=== PATIENT | male | born 1985 | race Caucasian/White ===

== ENCOUNTER 2017-01-01 16:40 | Emergency (ER) | payer SELFPAY ==
[2017-01-01 16:43] VITALS: BMI 32.5
[2017-01-01 16:47] VITALS: RESP 16; TEMP 98.5
[2017-01-01 18:42] VITALS: BP 124/68; PULSE 77; O2SAT 95
--- NOTE | 2017-01-01 18:43 | ED PDOC ---
Arrival/HPI - General Chief Complaint: Finger,Hand,&Wrist Time Seen by Provider: 01/01/17 17:03 Historian: Patient - History of Present Illness Narrative History of Present Illness (Text): 01/01/17 19:28 Patient sts he injured his right hand on the garage door. Patient sts he put ruchi wrap, but pain persists. Time/Duration: Other (2 days) Symptom Onset: Sudden Symptom Course: Unchanged Quality: Aching Past Medical History - Provider Review Nursing Documentation Reviewed: Yes - Travel History Have you recently traveled outside [place] w/in the past 3 mons?: No - Past History Past History: No Previous - Infectious Disease Hx of Infectious Diseases: None - Tetanus Immunization Tetanus Immunization: Unknown - Cardiac Hx Cardiac Disorders: Yes - Pulmonary Hx Respiratory Disorders: No - Neurological Hx Neurological Disorder: No - HEENT Hx HEENT Disorder: No - Renal Hx Renal Disorder: No - Endocrine/Metabolic Hx Endocrine Disorders: No - Hematological/Oncological Hx Blood Disorders: No - Integumentary Hx Dermatological Disorder: No - Musculoskeletal/Rheumatological Hx Musculoskeletal Disorders: No - Gastrointestinal Hx Gastrointestinal Disorders: No - Genitourinary/Gynecological Hx Genitourinary Disorders: No - Psychiatric Hx Psychophysiologic Disorder: No Hx Substance Use: No Family/Social History Family/Social History: Unknown Family HX Smoking Status: Light Smoker < 10 Cigarettes Daily Hx Alcohol Use: No Hx Substance Use: No Allergies/Home Meds Allergies/Adverse Reactions: Allergies No Known Allergies Allergy (Verified 08/17/16 16:56) Review of Systems - Physician Review All systems were reviewed & negative as marked: Yes - Review of Systems Musculoskeletal: Other (right hand pain/swelling) Physical Exam Vital Signs Reviewed: Yes Vital Signs Temp Pulse Resp BP Pulse Ox 01/01/17 18:41 77 16 124/68 95 01/01/17 16:40 98.5 F 94 H 16 111/74 97 Temperature: Afebrile Blood Pressure: Normal Pulse: Regular Respiratory Rate: Normal Appearance: Positive for: Well-Appearing, Non-Toxic, Comfortable Pain Distress: None Mental Status: Positive for: Alert and Oriented X 3 - Systems Exam Head: Present: Atraumatic, Normocephalic Upper Extremity: Present: Tenderness (right hand over 4/5th metacarpal bones), Swelling (right hand over 4/5th metacarpal bones), Capillary Refill < 2s Neurological: Present: GCS=15, Speech Normal, Motor Func Grossly Intact, Normal Sensory Function Psychiatric: Present: Alert, Oriented x 3, Normal Insight, Normal Concentration Medical Decision Making - RAD Interpretation Narrative RAD Interpretations (Text): 01/01/17 19:46 Minimally displaced fracture of the 5th metacarpal bone Radiology Orders: 01/01/17 17:03 HAND RIGHT 3 VIEWS [RAD] Stat - Medication Orders Current Medication Orders: Discontinued Medications Ibuprofen (Motrin Tab) 600 mg PO STAT STA Stop: 01/01/17 17:04 Last Admin: 01/01/17 17:45 Dose: 600 mg - Procedure PROCEDURE NOTE (Text): 01/01/17 19:46 Ulnat gutter splint was applied by architectural technician and checked by me. arm sling was applied. Disposition/Present on Arrival - Present on Arrival Any Indicators Present on Arrival: No History of DVT/PE: No History of Uncontrolled Diabetes: No Urinary Catheter: No History of Decub. Ulcer: No History Surgical Site Infection Following: None - Disposition Have Diagnosis and Disposition been Completed?: Yes Diagnosis: Hand fracture Disposition: HOME/ ROUTINE Disposition Time: 18:41 Patient Plan: Discharge Condition: STABLE Discharge Instructions (ExitCare): Hand Fracture (ED) Additional Instructions: Follow up with Hand specialist/Orthopedist within 2-3 days. Return to ED if feel worse. Prescriptions: oxyCODONE/Acetaminophen [Percocet 5/325 mg Tab] 1 tab PO QID PRN #20 tab PRN Reason: Pain Referrals: [facility] [Outside] - Follow up with primary Irasema Gonazlez MD [Staff Provider] - Follow up with primary
--- NOTE | 2017-01-02 09:25 | RAD ---
PROCEDURE: Right Hand Radiographs. HISTORY: injury COMPARISON: None. FINDINGS: BONES: Normal. No fracture. Diagonal complete fracture 5th metacarpal midshaft with dorsal apical fracture tip angulation and 1 to 2 mm separation of fracture fragments noted. No intra-articular extension. JOINTS: Normal. No osteoarthritic changes. SOFT TISSUES: Normal. OTHER FINDINGS: None. IMPRESSION: Fifth metacarpal fracture
== END 2017-01-01 19:02 | disposition home or self-care (01) ==
LOC: ED 16:40
DX: S62.306A Unspecified fracture of fifth metacarpal bone, right hand, initial encounter for closed fracture (principal); W23.0XXA Caught, crushed, jammed, or pinched between moving objects, initial encounter; Y93.89 Activity, other specified; Y92.89 Other specified places as the place of occurrence of the external cause